=== PATIENT | female | born 1970 | race Caucasian/White ===

== ENCOUNTER 2019-02-20 14:35 | Emergency (ER) | payer OTHER ==
[~2019-02-20] VITALS: Ht 167.6 cm; Wt 88.9 kg
[2019-02-20] MEDS ORDERED: IV NORMAL SALINE 1000ML BAG 1,000 ML IV ONE (15:30)
[2019-02-20] MEDS ORDERED: MORPHINE SULFATE 10 MG/ML VIAL. IV ONE (15:30)
[2019-02-20] MEDS ORDERED: ONDANSETRON PF 4 MG/2 ML VIAL. IV ONE (15:30)
--- NOTE | 2019-02-20 15:36 | PHYS DOC ---
Past Medical History Past Medical History: Other Additional Past Medical Histor: stomach ulcer (CHUCK LEE APRN) Past Surgical History: Gastric Bypass (CHUCK LEE APRN) Alcohol Use: None Drug Use: None (CHUCK LEE APRN) Adult General Chief Complaint Chief Complaint: NAUSEA/VOMITING/DIARRHA HPI HPI Patient is a 48 year old female with a history of gastric bypass a couple years ago who presents to the ED today complaining of nausea, vomiting, symptoms began this morning. Patient says for the last couple days she's been feeling like she has the flu. Patient denies any diarrhea. Denies any fever. She states she is currently being treated for UTI by the PCP, she is on day 7 of antibiotics, she unfortunately does not remember the name of the antibiotics. Denies any abdominal pain. (CHUCK LEE APRN) Review of Systems Review of Systems Constitutional: Denies fever or chills [] Eyes: Denies change in visual acuity, redness, or eye pain [] HENT: Denies nasal congestion or sore throat [] Respiratory: Denies cough or shortness of breath [] Cardiovascular: No additional information not addressed in HPI [] GI:reports nausea, vomiting. Denies abdominal pain, bloody stools or diarrhea [] : Denies dysuria or hematuria [] Musculoskeletal: Denies back pain or joint pain [] Integument: Denies rash or skin lesions [] Neurologic: Denies headache, focal weakness or sensory changes [] Endocrine: Denies polyuria or polydipsia [] All other systems were reviewed and found to be within normal limits, except as documented in this note. (CHUCK LEE APRN) Current Medications Current Medications Current Medications Medications (Trade) Dose Ordered Sig/Giana Start Time Stop Time Status Last Admin Dose Admin Dicyclomine HCl (Bentyl) 20 mg 1X ONCE 02/20/19 18:00 02/20/19 18:01 DC 02/20/19 18:23 20 MG Info (CONTRAST GIVEN -- Rx MONITORING) 1 each PRN DAILY PRN 02/20/19 16:45 02/20/19 18:42 DC Iohexol (Omnipaque 300 Mg/ml) 75 ml 1X ONCE 02/20/19 16:45 02/20/19 16:46 DC 02/20/19 16:36 75 ML Metoclopramide HCl (Reglan Vial) 10 mg 1X ONCE 02/20/19 18:00 02/20/19 18:01 DC 02/20/19 18:24 10 MG Morphine Sulfate (Morphine Sulfate) 5 mg 1X ONCE 02/20/19 15:30 02/20/19 15:31 DC Ondansetron HCl (Zofran) 4 mg 1X ONCE 02/20/19 15:30 02/20/19 15:31 DC 02/20/19 15:37 4 MG Promethazine HCl (Phenergan) 25 mg 1X ONCE 02/20/19 18:00 02/20/19 18:01 DC 02/20/19 18:23 25 MG Sodium Chloride 1,000 ml @ 1,000 mls/hr 1X ONCE 02/20/19 15:30 02/20/19 16:29 DC 02/20/19 15:37 1,000 MLS/HR (CHAPARRITA MONTES DO) Allergies Allergies Allergies Coded Allergies Type Severity Reaction Last Updated Verified diphenhydramine Adverse Reaction Mild 02/20/19 Yes (CHAPARRITA MONTES DO) Physical Exam Physical Exam Constitutional: Well developed, well nourished, no acute distress, non-toxic ap pearance. [] HENT: Normocephalic, atraumatic, bilateral external ears normal, oropharynx moist, no oral exudates, nose normal. [] Eyes: PERRLA, EOMI, conjunctiva normal, no discharge. [] Neck: Normal range of motion, no tenderness, supple, no stridor. [] Cardiovascular:Heart rate regular rhythm, no murmur [] Lungs & Thorax: Bilateral breath sounds clear to auscultation [] Abdomen: Old healed surgical incisions noted on the abdomen consistent of cholecystectomy laparotomy. Bowel sounds normal, soft, no tenderness, no masses, no pulsatile masses. [] Skin: Warm, dry, no erythema, no rash. [] Back: No tenderness, no CVA tenderness. [] Extremities: No tenderness, no cyanosis, no clubbing, ROM intact, no edema. [] Neurologic: Alert and oriented X 3, normal motor function, normal sensory function, no focal deficits noted. [] Psychologic: Affect normal, judgement normal, mood normal. [] (CHUCK LEE APRN) Current Patient Data Vital Signs Vital Signs Date Time Temp Pulse Resp B/P (MAP) Pulse Ox O2 Delivery O2 Flow Rate FiO2 02/20/19 18:00 70 17 115/63 (80) 95 Room Air 02/20/19 14:53 95.9 95.9 (CHAPARRITA MONTES DO) Lab Values Laboratory Tests Test 02/20/19 14:51 02/20/19 15:11 02/20/19 16:40 Urine Collection Type Unknown Urine Color Yellow Urine Clarity Cloudy Urine pH 8.5 Urine Specific Harold 1.020 Urine Protein Negative mg/dL (NEG-TRACE) Urine Glucose (UA) Negative mg/dL (NEG) Urine Ketones (Stick) Negative mg/dL (NEG) Urine Blood Negative (NEG) Urine Nitrite Negative (NEG) Urine Bilirubin Negative (NEG) Urine Urobilinogen Dipstick 1.0 mg/dL (0.2 mg/dL) Urine Leukocyte Esterase Negative (NEG) Urine RBC 0 /HPF (0-2) Urine WBC Occ /HPF (0-4) Urine Squamous Epithelial Cells Mod /LPF Urine Amorphous Sediment Present /HPF Urine Bacteria Few /HPF (0-FEW) Urine Opiates Screen Neg (NEG) Urine Methadone Screen Neg (NEG) Urine Barbiturates Neg (NEG) Urine Phencyclidine Screen Neg (NEG) Urine Amphetamine/Methamphetamine Neg (NEG) Urine Benzodiazepines Screen Neg (NEG) Urine Cocaine Screen Neg (NEG) Urine Cannabinoids Screen Neg (NEG) Urine Ethyl Alcohol Neg (NEG) White Blood Count 7.5 x10^3/uL (4.0-11.0) Red Blood Count 4.50 x10^6/uL (3.50-5.40) Hemoglobin 13.4 g/dL (12.0-15.5) Hematocrit 40.1 % (36.0-47.0) Mean Corpuscular Volume 89 fL (79-100) Mean Corpuscular Hemoglobin 30 pg (25-35) Mean Corpuscular Hemoglobin Concent 33 g/dL (31-37) Red Cell Distribution Width 13.2 % (11.5-14.5) Platelet Count 298 x10^3/uL (140-400) Neutrophils (%) (Auto) 77 % (31-73) H Lymphocytes (%) (Auto) 14 % (24-48) L Monocytes (%) (Auto) 7 % (0-9) Eosinophils (%) (Auto) 1 % (0-3) Basophils (%) (Auto) 1 % (0-3) Neutrophils # (Auto) 5.8 x10^3/uL (1.8-7.7) Lymphocytes # (Auto) 1.0 x10^3/uL (1.0-4.8) Monocytes # (Auto) 0.5 x10^3/uL (0.0-1.1) Eosinophils # (Auto) 0.1 x10^3/uL (0.0-0.7) Basophils # (Auto) 0.1 x10^3/uL (0.0-0.2) Sodium Level 139 mmol/L (136-145) Potassium Level 3.7 mmol/L (3.5-5.1) Chloride Level 103 mmol/L (98-107) Carbon Dioxide Level 26 mmol/L (21-32) Anion Gap 10 (6-14) Blood Urea Nitrogen 15 mg/dL (7-20) Creatinine 0.8 mg/dL (0.6-1.0) Estimated GFR (Cockcroft-Gault) 76.2 BUN/Creatinine Ratio 19 (6-20) Glucose Level 167 mg/dL (70-99) H Calcium Level 8.9 mg/dL (8.5-10.1) Magnesium Level 1.9 mg/dL (1.8-2.4) Total Bilirubin 0.3 mg/dL (0.2-1.0) Aspartate Amino Transferase (AST) 79 U/L (15-37) H Alanine Aminotransferase (ALT) 83 U/L (14-59) H Alkaline Phosphatase 115 U/L (46-116) Total Protein 7.4 g/dL (6.4-8.2) Albumin 3.6 g/dL (3.4-5.0) Albumin/Globulin Ratio 0.9 (1.0-1.7) L Lipase 163 U/L (73-393) Ethyl Alcohol Level < 10 mg/dL (0-10) Influenza Type A Antigen Negative (NEGATIVE) Influenza Type B Antigen Negative (NEGATIVE) Laboratory Tests 02/20/19 15:11 Laboratory Tests 02/20/19 15:11 (CHAPARRITA MONTES DO) Lab Values Laboratory Tests Test 02/20/19 14:51 02/20/19 15:11 10/25/19 16:40 Urine Collection Type Unknown Urine Color Yellow Urine Clarity Cloudy Urine pH 8.5 Urine Specific Harold 1.020 Urine Protein Negative mg/dL (NEG-TRACE) Urine Glucose (UA) Negative mg/dL (NEG) Urine Ketones (Stick) Negative mg/dL (NEG) Urine Blood Negative (NEG) Urine Nitrite Negative (NEG) Urine Bilirubin Negative (NEG) Urine Urobilinogen Dipstick 1.0 mg/dL (0.2 mg/dL) Urine Leukocyte Esterase Negative (NEG) Urine RBC 0 /HPF (0-2) Urine WBC Occ /HPF (0-4) Urine Squamous Epithelial Cells Mod /LPF Urine Amorphous Sediment Present /HPF Urine Bacteria Few /HPF (0-FEW) Urine Opiates Screen Neg (NEG) Urine Methadone Screen Neg (NEG) Urine Barbiturates Neg (NEG) Urine Phencyclidine Screen Neg (NEG) Urine Amphetamine/Methamphetamine Neg (NEG) Urine Benzodiazepines Screen Neg (NEG) Urine Cocaine Screen Neg (NEG) Urine Cannabinoids Screen Neg (NEG) Urine Ethyl Alcohol Neg (NEG) White Blood Count 7.5 x10^3/uL (4.0-11.0) Red Blood Count 4.50 x10^6/uL (3.50-5.40) Hemoglobin 13.4 g/dL (12.0-15.5) Hematocrit 40.1 % (36.0-47.0) Mean Corpuscular Volume 89 fL (79-100) Mean Corpuscular Hemoglobin 30 pg (25-35) Mean Corpuscular Hemoglobin Concent 33 g/dL (31-37) Red Cell Distribution Width 13.2 % (11.5-14.5) Platelet Count 298 x10^3/uL (140-400) Neutrophils (%) (Auto) 77 % (31-73) H Lymphocytes (%) (Auto) 14 % (24-48) L Monocytes (%) (Auto) 7 % (0-9) Eosinophils (%) (Auto) 1 % (0-3) Basophils (%) (Auto) 1 % (0-3) Neutrophils # (Auto) 5.8 x10^3/uL (1.8-7.7) Lymphocytes # (Auto) 1.0 x10^3/uL (1.0-4.8) Monocytes # (Auto) 0.5 x10^3/uL (0.0-1.1) Eosinophils # (Auto) 0.1 x10^3/uL (0.0-0.7) Basophils # (Auto) 0.1 x10^3/uL (0.0-0.2) Sodium Level 139 mmol/L (136-145) Potassium Level 3.7 mmol/L (3.5-5.1) Chloride Level 103 mmol/L (98-107) Carbon Dioxide Level 26 mmol/L (21-32) Anion Gap 10 (6-14) Blood Urea Nitrogen 15 mg/dL (7-20) Creatinine 0.8 mg/dL (0.6-1.0) Estimated GFR (Cockcroft-Gault) 76.2 BUN/Creatinine Ratio 19 (6-20) Glucose Level 167 mg/dL (70-99) H Calcium Level 8.9 mg/dL (8.5-10.1) Magnesium Level 1.9 mg/dL (1.8-2.4) Total Bilirubin 0.3 mg/dL (0.2-1.0) Aspartate Amino Transferase (AST) 79 U/L (15-37) H Alanine Aminotransferase (ALT) 83 U/L (14-59) H Alkaline Phosphatase 115 U/L (46-116) Total Protein 7.4 g/dL (6.4-8.2) Albumin 3.6 g/dL (3.4-5.0) Albumin/Globulin Ratio 0.9 (1.0-1.7) L Lipase 163 U/L (73-393) Ethyl Alcohol Level < 10 mg/dL (0-10) Influenza Type A Antigen Negative (NEGATIVE) Influenza Type B Antigen Negative (NEGATIVE) Laboratory Tests 02/20/19 15:11 Laboratory Tests 02/20/19 15:11 (CHUCK LEE APRN) EKG EKG [] (CHUCK LEE APRN) Radiology/Procedures Radiology/Procedures []PROCEDURE: CT ABD PELV W/ IV CONTRST ONLY Exam: CT abdomen and pelvis with contrast INDICATION: Nausea, vomiting and abdominal pain TECHNIQUE: Sequential axial images through the abdomen and pelvis obtained following the administration of 70 mL of Omni 300 IV contrast. Sagittal and coronal reformatted images were reconstructed from the axial data and reviewed. Comparisons: None FINDINGS: Heart size is normal. No pericardial effusion. Visualized lung bases are clear. No pleural effusion. Liver, spleen, pancreas, and adrenals are unremarkable. Kidneys a straight symmetric enhancement. No perinephric inflammation or hydronephrosis. No renal or ureteral calculi are identified. Bladder is distended and appears thin-walled. Uterus is not enlarged. No abnormal adnexal mass. Large and small bowel are unremarkable. Appendix is normal. No free intra-abdominal air or fluid. Abdominal aorta has a normal course and caliber. Abdominal vasculature is patent. No enlarged intra-abdominal lymph nodes are identified. No suspicious osseous lesions or acute fractures. IMPRESSION: No acute process identified within the abdomen or pelvis. Exposure: One or more of the following in the visualized dose reduction techniques were utilized for this examination: 1. Automated exposure control 2. Adjustment of the MA and/or KV according to patient size 3. Use of iterative of reconstructive technique Electronically signed by: Bessy Currie MD (02/20/2019 5:16 PM) [facility] DICTATED and SIGNED BY: BESSY CURRIE MD DATE: 02/20/19 1716 (CHUCK LEE APRN) Course & Med Decision Making Course & Med Decision Making Pertinent Labs and Imaging studies reviewed. (See chart for details) This is a 48-year-old female patient presented to the ED today with nausea, vomiting, symptoms began today. She is currently on antibiotics for UTI. Urine analysis is negative for infection. CBC, CMP, lipase-no acute findings. CT of the abdomen and pelvic is negative for any acute findings. Patient has been given a liter of fluid and nausea medicine. Feeling better. Will be discharged to home. Follow-up with PCP in 1-2 weeks. (CHUCK LEE APRN) Dragon Disclaimer Dragon Disclaimer This electronic medical record was generated, in whole or in part, using a voice recognition dictation system. (CHUCK LEE APRN) Departure Departure Impression: Primary Impression: Nausea & vomiting Disposition: 01 HOME, SELF-CARE Condition: STABLE Referrals: NIKOLE BURCH DO (PCP) Patient Instructions: Nausea and Vomiting, [id number] Additional Instructions: You were evaluated in the emergency room for nausea and vomiting, your workup was negative for any acute findings. Would recommend he push fluids. Maintain good hand hygiene. Follow-up with your doctor in 1-2 weeks. Scripts Promethazine Hcl (PROMETHAZINE HCL) 25 Mg Tablet 1 TAB PO PRN Q6HRS, #20 TAB Prov: CHUCK LEE NORAH 02/20/19 Dicyclomine Hcl (DICYCLOMINE HCL) 20 Mg Tablet 1 TAB PO TID, #30 TAB 1 Refill Prov: CHUCK LEE OFFICER CAPTAIN 02/20/19 Ondansetron (ONDANSETRON ODT) 4 Mg Tab.rapdis 1 TAB PO PRN Q6-8HRS, #16 TAB Prov: CHUCK LEE NORAH 02/20/19 Attending Signature Attending Signature I have reviewed the PA/MANAGEMENT NURSE RN's note and plan of care. I was available for consultation as needed during the patient's visit in the emergency department. I agree with the clinical impression, plan, and disposition. (CHAPARRITA MONTES DO) Problem Qualifiers Primary Impression: Nausea & vomiting Vomiting type: unspecified Vomiting Intractability: unspecified Qualified Codes: R11.2 - Nausea with vomiting, unspecified CHUCK LEE NORAH Feb 20, 2019 15:36 CHAPARRITA MONTES DO Feb 21, 2019 05:36
[2019-02-20 15:38] LABS: BILIRUBIN,URINE NEGATIVE (NEG); CLARITY,URINE CLOUDY; COLOR,URINE YELLOW; NITRITE,URINE NEGATIVE (NEG); PH,URINE 8.5; PROTEIN,URINE NEGATIVE (NEG-TRACE)
[2019-02-20 15:38] LABS: BASO # 0.1 x10^3/uL (0.0-0.2); BASO % 1 % (0-3); EOS # 0.1 x10^3/uL (0.0-0.7); EOS % 1 % (0-3); HEMATOCRIT 40.1 % (36.0-47.0); HEMOGLOBIN 13.4 g/dL (12.0-15.5); LYMPH % 14 % (24-48); MEAN CORPUSCULAR HEMOGLOBIN 30 pg (25-35); MEAN CORPUSCULAR HGB CONC 33 g/dL (31-37); MEAN CORPUSCULAR VOLUME 89 fL (79-100); MONO # 0.5 x10^3/uL (0.0-1.1); MONO % 7 % (0-9); NEUT # 5.8 x10^3/uL (1.8-7.7); NEUT % 77 % (31-73); PLATELET COUNT 298 x10^3/uL (140-400); RED CELL DISTRIBUTION WIDTH 13.2 % (11.5-14.5); WHITE BLOOD COUNT 7.5 x10^3/uL (4.0-11.0)
[2019-02-20 15:49] LABS: BARBITURATES NEG (NEG); BENZODIAZEPINES NEG (NEG); CANNABINOIDS NEG (NEG); COCAINE NEG (NEG); METHADONE NEG (NEG); OPIATES NEG (NEG); PHENCYCLIDINE NEG (NEG)
[2019-02-20 15:50] LABS: AMPHETAMINE/METHAMPHETAMINE NEG (NEG)
[2019-02-20 15:53] LABS: CALCIUM 8.9 mg/dL (8.5-10.1); CREATININE 0.8 mg/dL (0.6-1.0); GFR 76.2; POTASSIUM 3.7 mmol/L (3.5-5.1)
[2019-02-20 15:58] LABS: AMORPHOUS SEDIMENT,UR PRESENT /HPF; BACTERIA,URINE FEW /HPF (0-FEW); RBC,URINE 0 /HPF (0-2); SQUAMOUS EPITHELIAL CELL,UR MOD /LPF; WBC,URINE OCC /HPF (0-4)
[2019-02-20 15:59] LABS: ALBUMIN 3.6 g/dL (3.4-5.0); ALBUMIN/GLOBULIN RATIO 0.9 (1.0-1.7); MAGNESIUM 1.9 mg/dL (1.8-2.4); TOTAL BILIRUBIN 0.3 mg/dL (0.2-1.0); TOTAL PROTEIN 7.4 g/dL (6.4-8.2)
[2019-02-20] MEDS ORDERED: CONTRAST GIVEN. MC PRN (16:45)
[2019-02-20] MEDS ORDERED: IOHEXOL 300 MG/ML 100ML VIAL. IV ONE (16:45)
[2019-02-20 17:19] LABS: INFLUENZA A PATIENT NEGATIVE (NEGATIVE); INFLUENZA B PATIENT NEGATIVE (NEGATIVE)
--- NOTE | 2019-02-20 17:19 | RAD ---
Exam: CT abdomen and pelvis with contrast INDICATION: Nausea, vomiting and abdominal pain TECHNIQUE: Sequential axial images through the abdomen and pelvis obtained following the administration of 70 mL of Omni 300 IV contrast. Sagittal and coronal reformatted images were reconstructed from the axial data and reviewed. Comparisons: None FINDINGS: Heart size is normal. No pericardial effusion. Visualized lung bases are clear. No pleural effusion. Liver, spleen, pancreas, and adrenals are unremarkable. Kidneys a straight symmetric enhancement. No perinephric inflammation or hydronephrosis. No renal or ureteral calculi are identified. Bladder is distended and appears thin-walled. Uterus is not enlarged. No abnormal adnexal mass. Large and small bowel are unremarkable. Appendix is normal. No free intra-abdominal air or fluid. Abdominal aorta has a normal course and caliber. Abdominal vasculature is patent. No enlarged intra-abdominal lymph nodes are identified. No suspicious osseous lesions or acute fractures. IMPRESSION: No acute process identified within the abdomen or pelvis. Exposure: One or more of the following in the visualized dose reduction techniques were utilized for this examination: 1. Automated exposure control 2. Adjustment of the MA and/or KV according to patient size 3. Use of iterative of reconstructive technique Electronically signed by: Bessy Elliott MD (02/20/2019 5:16 PM) [facility]
[2019-02-20] MEDS ORDERED: DICY20TA3 PO (17:55)
[2019-02-20] MEDS ORDERED: PROM25TA10 PO (17:55)
[2019-02-20] MEDS ORDERED: ONDA4TAB12 PO (17:55)
[2019-02-20 18:00] VITALS: BP 115/63
[2019-02-20] MEDS ORDERED: PROMETHAZINE 12.5 MG TABLET. PO ONE (18:00)
[2019-02-20] MEDS ORDERED: METOCLOPRAMIDE HCL 10 MG/2 ML VIAL. IVP ONE (18:00)
[2019-02-20] MEDS ORDERED: DICYCLOMINE HCL 10 MG CAPSULE PO ONE (18:00)
== END 2019-02-20 18:26 | disposition home or self-care (01) ==
LOC: ER 14:35
DX: R11.2 Nausea with vomiting, unspecified (principal); Z98.84 Bariatric surgery status; Z88.8 Allergy status to other drugs, medicaments and biological substances
CPT/HCPCS: 36415; 74177; 80053; 80307; 81001; 83690; 83735; 85025; 87804; 96361; 96374; 96375; 99285; G0480; J2405; J2765; J7030; Q0169; Q9967